=== PATIENT | female | born 1950 | race Caucasian/White ===

== ENCOUNTER → 2017-05-19 | Outpatient (CLI) | payer MEDICARE, OTHER ==
--- NOTE | 2017-05-25 07:15 | OR ---
ADMIT: 05/19/2017 RM/LOC: [facility] MR#: [id number] [address] [id number] [address] [place] [address] Operative/Delivery Room Report SEX: F AGE: 67 : 1950 SURGERY DATE: 05/19/2017 SURGEON: Farrukh Briceno MD PREOPERATIVE DIAGNOSIS: Right hip degenerative joint disease. POSTOPERATIVE DIAGNOSIS: Right hip degenerative joint disease. PROCEDURE: Right hip injection under fluoroscopy. FISH SALTER: None. ANESTHESIA: Local. COMPLICATIONS: None. DESCRIPTION OF PROCEDURE: The patient was taken to fluoroscopy suite. The right hip was identified with fluoroscopy. Prepped and draped in standard fashion. At that point, a spinal needle was placed from the anterolateral thigh along the anterior femoral neck. Anesthetized the needle tract with bupivacaine. You could feel the needle pierced the anterior hip capsule. At that point, we injected the hip with a mixture of bupivacaine and Kenalog. At that point, we withdrew the needle. Applied a Band-Aid to the injection site. She will document pain relief. Follow up in 2 weeks in clinic. Farrukh Briceno MD/ giana JOB #: [id number] CC: Farrukh Briceno, Attending Physician Denzel Guzmán, Family Physician
== END | disposition home or self-care (01) ==
LOC: RAD.S 08:30
PROC: 0S993ZZ Drainage of Right Hip Joint, Percutaneous Approach (ICD-10-PCS; principal; 2017-05-19)
DX: M16.11 Unilateral primary osteoarthritis, right hip (principal); M25.551 Pain in right hip